=== PATIENT | female | born 1995 ===

== ENCOUNTER → 2020-07-27 | Outpatient (CLI) | payer OTHER | END | disposition home or self-care (01) | LOC: PRENATAL 14:20 | PROVIDERS: ATTEND Obstetrics & Gynecology Maternal & Fetal Medicine | DX: O35.0XX1 Maternal care for (suspected) central nervous system malformation in fetus, fetus 1 (principal); O35.3XX1 Maternal care for (suspected) damage to fetus from viral disease in mother, fetus 1; O98.512 Other viral diseases complicating pregnancy, second trimester; Z36.89 Encounter for other specified antenatal screening; Z3A.20 20 weeks gestation of pregnancy ==

== ENCOUNTER 2020-11-04 18:06 | Inpatient (IN) | payer OTHER ==
[~2020-11-04] VITALS: Ht 162.6 cm; Wt 1.8 kg
[2020-11-04] MEDS ORDERED: PRENATAL CAPLE1 EAC1 PO (18:09)
== END 2020-11-12 14:31 | disposition home or self-care (01) | DRG 787 ==
LOC: LDR 18:06 → OB/GYN 18:06
PROVIDERS: ADMIT Obstetrics & Gynecology; ATTEND Obstetrics & Gynecology
PROC: 4A1HXFZ Monitoring of Products of Conception, Cardiac Rhythm, External Approach (ICD-10-PCS; 2020-11-04)
PROC: 10D00Z1 Extraction of Products of Conception, Low, Open Approach (ICD-10-PCS; principal; 2020-11-09 07:00)
DX: O14.14 Severe pre-eclampsia complicating childbirth (principal); O41.03X0 Oligohydramnios, third trimester, not applicable or unspecified; O36.5930 Maternal care for other known or suspected poor fetal growth, third trimester, not applicable or unspecified; Z3A.35 35 weeks gestation of pregnancy; Z37.0 Single live birth

== ENCOUNTER → 2020-11-04 | Outpatient (CLI) | payer OTHER ==
[~2020-11-04] MED LIST: PRENATAL CAPLE1 EAC1 PO
== END | disposition home or self-care (01) ==
LOC: PRENATAL 16:30
PROVIDERS: ATTEND Obstetrics & Gynecology Maternal & Fetal Medicine
DX: O26.843 Uterine size-date discrepancy, third trimester (principal); O36.8131 Decreased fetal movements, third trimester, fetus 1; O36.5931 Maternal care for other known or suspected poor fetal growth, third trimester, fetus 1; O41.03X1 Oligohydramnios, third trimester, fetus 1; Z36.89 Encounter for other specified antenatal screening; Z3A.33 33 weeks gestation of pregnancy

== ENCOUNTER 2021-10-21 21:39 | Emergency (ER) | payer OTHER ==
[~2021-10-21] VITALS: Ht 162.6 cm; Wt 87.5 kg
[2021-10-21] MEDS ORDERED: HYDROXYZIN10 MG/5 ML PO (22:35)
[2021-10-21] MEDS ORDERED: SERTRALINE20 MG/1 ML (22:35)
[2021-10-21] MEDS ORDERED: GEMFIBROZIL600 MG PO (22:36)
[2021-10-21] MEDS ORDERED: AZITHROMYCIN250 MG PO (22:36)
[2021-10-21] MEDS ORDERED: LEVOTHYROXINE25 MC2 PO (22:36)
[2021-10-21] MEDS ORDERED: [UNRECOGNIZED DRUG - OTHER] MM (22:37)
[2021-10-22] MEDS ORDERED: ZYNCOF 20-400120 ML PO (02:59)
[2021-10-22] MEDS ORDERED: DOLOGESIC 500-1 EACH PO (02:59)
== END 2021-10-22 03:47 ==
LOC: ER 21:39
DX: U07.1 COVID-19 (principal)